=== PATIENT | female | born 1975 | race Asian ===

== ENCOUNTER 2021-10-28 09:59 | Emergency (ER) | payer OTHER, SELFPAY ==
[2021-10-28] VITALS (8 sets, daily range): BP systolic 99–125; BP diastolic 58–81; PULSE 72–91; RESP 17–18; TEMP 36.2; O2SAT 95–100; BMI 22.8
[2021-10-28] MEDS: KETOROLAC 30 MG/ML VIAL 15 MG IV (10:29)
[2021-10-28] MEDS: diphenhydrAMINE 50 MG/ML VIAL 25 MG IV (10:29)
[2021-10-28] MEDS: SODIUM CHLORIDE 0.9% 1,000 ML 1000 ML IV (10:29)
[2021-10-28] MEDS: PROCHLORPERAZINE 10 MG/2 ML VIAL IV (10:30)
--- NOTE | 2021-10-28 10:30 | ED.HA ---
HPI - Headache General Chief Complaint: Headache Stated Complaint: Migraine 4 days, vomiting, dehydrated Time Seen by Provider: 10/28/21 10:11 Mode of arrival: Ambulatory History of Present Illness HPI Narrative: Patient is a 46-year-old female with history of migraine headaches presenting with migraine headache ongoing for last 4 days, with feels like typical migraine headache it is mostly on the right side. Sensitive to light and noise. She tried her home medications it is not working. She has been throwing up. She says previously she has gotten a migraine cocktail and fluids and has helped tremendously. That she is requesting now. She feels like her feet are swollen but they are not she said her boots felt a little bit tight. She otherwise has no numbness tingling or weakness. She has a brown. Related Data Allergies Allergy/AdvReac Type Severity Reaction Status Date / Time No Known Drug Allergies Allergy Verified 10/28/21 10:20 Review of Systems Review of Systems Narrative: GENERAL: Denies chills, fatigue, malaise, fever, sweats, travel HEENT: Denies sinus pain, ear pain, sore throat, difficulty swallowing, neck pain RESPIRATORY: Denies dyspnea, cough, wheezing, hemoptysis, sputum. CARDIOVASCULAR: Denies chest pain, palpitations, orthopnea, edema GASTROINTESTINAL: Denies nausea, vomiting, abdominal pain, diarrhea, constipation, melena. : Denies dysuria, frequency, incontinence, hematuria, urinary retention, flank pain. MUSCULOSKELETAL: Denies weakness, joint pain, or bony pain SKIN: No rash, no erythema, no pruritus NEUROLOGIC: See HPI PSYCHIATRIC: No concerning psychosocial issues. 12 point review of systems is negative except for those stated above and HPI Patient History Medical History Cluster headache Social History Smoking Status: Never smoker Smoking Status: Never smoker alcohol intake frequency: 0-2 drinks per day Substance Use Type: does not use Exam Initial Vital Signs Initial Vital Signs: Vital Signs Temperature 97.2 F L 10/28/21 10:00 Pulse Rate 90 10/28/21 10:00 Respiratory Rate 17 10/28/21 10:00 Blood Pressure 125/81 10/28/21 10:00 Pulse Oximetry 99 10/28/21 10:00 GENERAL: 26-year-old female currently dry heaving HEENT: Head atraumatic,EOMI, pupils reactive, face symmetric, moist] mucous membranes CARDIOVASCULAR: Regular rate and rhythm without murmurs, rubs or gallops. RESPIRATORY: Breath sounds equal bilaterally, no wheezes rales or rhonchi. ABDOMEN: Soft, nontender. Normoactive bowel sounds all 4 quadrants. No guarding or rebound. : No CVA tenderness EXTREMITIES: Normal range of motion, no clubbing or edema. Neurovascularly intact NEUROLOGICAL: Alert and oriented x4.Normal gait and speech. Cranial nerves II through XII grossly intact. SKIN: Warm, dry, no laceration, no petechiae, no rashes or lesions. Course Orders Ordered: ED Orders 10/28/21 10:15 COVID19 -Nasal swab/Pre-Proc Stat Discontinued Medications Diphenhydramine HCl (Diphenhydramine 50 Mg/Ml Vial) 25 mg IV NOW ONE Stop: 10/28/21 10:22 Last Admin: 10/28/21 10:29 Dose: 25 mg Documented by: GELY Sodium Chloride (Normal Saline 0.9%) 1,000 mls @ 1,000 mls/hr IV BOLUS ONE Stop: 10/28/21 11:20 Last Infusion: 10/28/21 11:26 Dose: 0 mls/hr Documented by: Admin: 10/28/21 10:29 Dose: 1,000 mls/hr Documented by: GELY Ketorolac Tromethamine (Ketorolac 30 Mg/Ml Vial) 15 mg IV NOW ONE Stop: 10/28/21 10:22 Last Admin: 10/28/21 10:29 Dose: 15 mg Documented by: GELY Prochlorperazine (Prochlorperazine 10 Mg/2 Ml Vial) 10 mg IV NOW ONE Stop: 10/28/21 10:22 Last Admin: 10/28/21 10:30 Dose: 10 mg Documented by: GELY Vital Signs Vital signs: Vital Signs - 8 hr 10/28/21 10:07 10/28/21 10:30 10/28/21 11:20 Pulse Rate 91 H 90 83 Respiratory Rate 17 17 Blood Pressure 125/81 120/78 106/69 Pulse Oximetry 100 95 10/28/21 11:30 10/28/21 12:00 10/28/21 12:30 Pulse Rate 81 76 76 Respiratory Rate 18 Blood Pressure 105/59 L 99/58 L 106/61 Pulse Oximetry 100 100 100 10/28/21 13:00 Pulse Rate 72 Respiratory Rate Blood Pressure 107/61 Pulse Oximetry 100 MDM - Headache Lab Data Labs: Lab Results 10/28/21 Range/Units 10:15 SARS-CoV-2 (PCR) Negative (Negative) MDM Narrative Medical decision making narrative: Patient was also requesting a COVID test which is fortunately negative. Headache has improved with migraine cocktail she has no focal deficits finally feels like she is ready able to go home. Discharge Plan Departure Patient Disposition: Home Clinical Impression: Migraine Instructions: DI for Migraine Activity Restrictions/Additional Instructions: *You have been diagnosed with migraine *What to do: Go home and rest. Increase fluids as tolerated. Your COVID test today was negative. *Continue to take medications as directed *Follow up with your primary care provider in 2-3 days or call [phone] *Return to ER if you should have increasing headache, numbness tingling weakness persistent vomiting or any new, worsening or concerning symptoms
[2021-10-28 10:50] LABS: COVID19 -Nasal RAPID Negative (Negative)
== END 2021-10-28 13:19 | disposition home or self-care (01) ==
PROVIDERS: Emergency Provider Emergency Medicine
DX: G43.909 Migraine, unspecified, not intractable, without status migrainosus (principal); Z20.822 Contact with and (suspected) exposure to COVID-19
CPT/HCPCS: 36415; 87635; 96361; 96374; 96375; 99284; C9803; J0780; J1200; J1885

== ENCOUNTER 2022-07-23 13:03 | Emergency (ER) | payer OTHER, SELFPAY ==
[2022-07-23 13:25] VITALS: BP 163/93; PULSE 83; RESP 18; TEMP 36.8; O2SAT 99; BMI 22.6
--- NOTE | 2022-07-23 13:33 | DI.RAD.S_ITS ---
PROCEDURE: XR CHEST 2V INDICATIONS: chemical exposure, cough TECHNIQUE: 2 views of the chest were acquired. COMPARISON: None. FINDINGS: Surgical changes and devices: None. Lungs and pleura: Lungs are clear. No pleural effusions or pneumothorax. Mediastinum: Mediastinal contours are normal. Heart size is normal. Bones and chest wall: No suspicious bony abnormalities. Soft tissues appear unremarkable. IMPRESSION: Unremarkable chest plain films. No focal infiltrates are seen. Dictated by: William Aaron M.D. on 07/23/2022 at 13:08 Approved by: William Aaron M.D. on 07/23/2022 at 13:08
[2022-07-23 18:21] VITALS: PULSE 80; O2SAT 99
[2022-07-23 18:30] VITALS: BP 123/84; PULSE 76; O2SAT 99
[2022-07-23 19:00] VITALS: BP 140/91; PULSE 76; O2SAT 100
--- NOTE | 2022-07-23 19:29 | ED_ITS ---
HPI - General Adult General Chief complaint: Shortness of Breath/Dyspnea Stated complaint: pneumonitis - hard time breathing Time Seen by Provider: 07/23/22 19:16 Source: patient Mode of arrival: Family Vehicle Limitations: no limitations History of Present Illness HPI narrative: 47-year-old female who is here for evaluation of a cough and diagnosis of pneumonitis. She states that several weeks ago she used a Lavender spice cleaner. Is the 1st time that she is use this. A day later she stated that she had itching and swelling of her lower extremities. There were no respiratory issues. She went to the walk-in clinic. Was given medications to include steroids. Her symptoms resolved. A couple days later her daughter developed a cough and upper respiratory infection like symptoms. The patient then developed these symptoms. She is since been to walk-in clinic 2 separate times. Is currently on doxycycline. Also has an inhaler. Has finished her course of steroids. Was told at her last visit that she has pneumonitis. She is also has been using Robitussin. She is here because of the continued cough. Related Data Previous Rx's Medication Instructions Recorded benzonatate 100 mg capsule 100 mg PO TID PRN cough #21 caps 07/23/22 Allergies Allergy/AdvReac Type Severity Reaction Status Date / Time No Known Drug Allergies Allergy Verified 10/28/21 10:20 Review of Systems Review of Systems ROS Unobtainable: All systems reviewed & are unremarkable except as noted in HPI and below Patient History Medical History Cluster headache Social History Smoking Status: Never smoker Smoking Status: Never smoker alcohol intake frequency: 0-2 drinks per day Substance Use Type: does not use Exam Initial Vital Signs Initial Vital Signs: Vital Signs Temperature 98.3 F 07/23/22 13:25 Pulse Rate 83 07/23/22 13:25 Respiratory Rate 18 07/23/22 13:25 Blood Pressure 163/93 H 07/23/22 13:25 Pulse Oximetry 99 07/23/22 13:25 Oxygen Delivery Method 07/23/22 13:25 Const General: cooperative and comfortable HENMT Head: normal to inspection and normocephalic Resp Effort & Inspection: normal respiratory effort and cough Auscultation: clear to auscultation bilaterally Cardio Rate: regular rate Rhythm: regular rhythm GI Inspection: normal to inspection Skin General: no rashes or lesions noted Neuro General: patient alert, patient awake, patient oriented x3 and moves all extremities Speech: speech normal Extrem General: normal to inspection and capillary refill normal Psych Appearance: grossly normal and well kempt Course Orders Ordered: ED Orders 07/23/22 13:33 XR chest 2V Stat Vital Signs Vital signs: Vital Signs - 8 hr 07/23/22 13:25 07/23/22 18:21 07/23/22 18:30 Temperature 98.3 F Pulse Rate 83 80 Respiratory Rate 18 Blood Pressure 163/93 H 123/84 Pulse Oximetry 99 99 Oxygen Delivery Method Room Air 07/23/22 18:30 07/23/22 19:00 07/23/22 19:00 Temperature Pulse Rate 76 76 Respiratory Rate Blood Pressure 140/91 H Pulse Oximetry 99 100 Oxygen Delivery Method Room Air Medical Decision Making Imaging Data Chest x-ray: Radiologist's Impression: [address] [address] XRay Report Signed Patient: Deng Tavera MR#: [id number] : 1975 Acct:[id number] Age/Sex: 47 / F Date of Service: 07/23/22 Loc: ED Accession Number: [id number] ?? Procedure: XR chest 2V Ordering Provider: Lizz Boyce MD PROCEDURE:? XR CHEST 2V ? INDICATIONS:? chemical exposure, cough ? TECHNIQUE:? 2 views of the chest were acquired.? ? COMPARISON:? None. ? FINDINGS:? ? Surgical changes and devices:? None.? ? Lungs and pleura:? Lungs are clear.? No pleural effusions or pneumothorax.? ? Mediastinum:? Mediastinal contours are normal.? Heart size is normal.? ? Bones and chest wall:? No suspicious bony abnormalities.? Soft tissues appear unremarkable.? IMPRESSION:? Unremarkable chest plain films. ? No focal infiltrates are seen. ? Dictated by: William Aaron M.D. on 07/23/2022 at 13:08 ? ? Approved by: William Aaron M.D. on 07/23/2022 at 13:08?? MDM Narrative Medical decision making narrative: Patient is currently on an antibiotic. Her chest x-ray today shows no indication that we should change this. We did discuss starting on an antihistamine. Will send home with a prescription for Tessalon Annies. She does have an inhaler at home. No indication for repeat steroids. I do question the pneumonitis diagnosis and feel this is most likely an upper respiratory infection and most likely viral. I discussed this with her as well. She was given return precautions. She expressed understanding and agreement. Discharge Plan Departure Patient Disposition: Home Clinical Impression: Cough Instructions: DI for Cough -- Adult Activity Restrictions/Additional Instructions: A prescription for medication called Tessalon/benzoate was sent to [facility]. Please take it as directed. Continue to take all of your antibiotics as directed. Contact your primary doctor for follow-up. You can continue to use the albuterol inhaler if you feel like it is helpful. Return to the emergency department for any new symptoms. Prescriptions: New benzonatate 100 mg capsule 100 mg PO TID PRN (Reason: cough) Qty: 21 0RF Referrals: Miscellaneous,DoctorMD [Primary Care Provider] -
[2022-07-23 19:30] VITALS: BP 145/92; PULSE 85; O2SAT 99
== END 2022-07-23 19:39 | disposition home or self-care (01) ==
PROVIDERS: Emergency Provider Emergency Medicine
DX: R05.9 Cough, unspecified (principal)
CPT/HCPCS: 71046; 99281; 99283